=== PATIENT | male | born 1965 | race Caucasian/White ===

== ENCOUNTER 2017-11-26 12:26 | Inpatient (IN) ==
--- NOTE | 2017-11-25 22:37 | Discharge Summary ---
<Leah Guzman - Last Filed: 11/25/17 22:34> Date of Encounter: 11/25/17 - Discharge Diagnosis (1) Arthritis of left hip Priority: Primary Status: Acute (2) Status post total hip replacement, left Priority: Primary Status: Acute (3) Congenital dysplasia of hip Priority: Primary Status: Acute (4) Obesity Priority: Secondary Status: Chronic Qualifiers: Obesity type: due to excess calories Obesity classification: unspecified obesity classification Serious obesity comorbidity presence: unspecified whether serious comorbidity present Qualified Code(s): E66.09 - Other obesity due to excess calories - Hospital Course Hospital course: Mr. Nascimento is a 52 year old male - Time Spent with Patient Total time spent providing and/or coordinating discharge services: - Discharge Medications Home Medications: Aspirin Enteric Coated [Aspirin EC] 325 mg PO BID #20 tablet. 11/25/17 [Rx] OxyCODONE Immed Rel [Roxicodone 5 MG] 5 mg PO Q6HR PRN 7 Days #28 tablet [Rx] Allergies/Adverse Reactions: 3 Allergy/AdvReac Type Severity Reaction Status Date / Time No Known Allergies Allergy Verified 11/26/17 12:58 Primary care physician: PCP NONE - Patient Status Disposition: Transfer Inpatient Rehab Fac Condition: Good - Discharge Instructions Follow Up With: NONE,PCP [Non-Partnered Physician] - <Adbeayo Friedman - Last Filed: 11/29/17 07:53> Orders not resulted at time of discharge: Pending orders 11/26/17 00:01 XR hip complete LT [XR] Routine H/H [Hemoglobin and Hematocrit] [HEME] Routine Date of Encounter: 11/29/17 Time of Encounter: 07:53 - Discharge Diagnosis (1) Obesity (BMI 35.0-39.9 without comorbidity) Priority: Secondary Status: Chronic (2) Arthritis of left hip Priority: Primary Status: Chronic (3) Status post total hip replacement, left Priority: Primary Status: Acute (4) Congenital dysplasia of hip Priority: Secondary Status: Chronic - Hospital Course Hospital course: Mr. Nascimento is a 52 year old male Status post left total hip replacement The patient had an uneventful postoperative course. They received antibiotics and physical therapy and were discharged in stable condition. There will follow -up in the office in 2 weeks. - Time Spent with Patient Total time spent providing and/or coordinating discharge services: Primary care physician: PCP NONE - Patient Status Functional capacity at discharge: uses cane/walker Overall status at discharge: patient is progressing back to baseline
[2017-11-26] MEDS ORDERED: CeFAZolin Syr 2,000MG/20 ML 2,000 MG/20 ML SYRINGE IVPB ONE (12:51)
--- NOTE | 2017-11-26 12:56 | History & Physical Report ---
Date of Encounter: 11/26/17 Time of Encounter: 12:56 24 Hour HP Update - Instructions Instructions: If the History and Physical is less than 30 days old and was completed prior to A.M. admission and or procedure and has NOT been updated on calendar day of procedure please complete this update prior to performing procedure. - Update Patient reports changes in Medical Condition: No Changes in examination, assessment, or condition: No Changes in Medication: No Preop tests/diagnostics Reviewed: Yes Surgery Remains Indicated: Yes Consent for Planned Operative Procedure(s) Verified: Yes - Pre-Operative Checklist Preoperative Checklist Indicated: No Prophylactic Antibiotic Ordered: Yes Is VTE Prophylaxis Indicated?: Yes
[2017-11-26] MEDS ORDERED: Ringers Solution, Lactated 1,000 ML IVC SCH (13:00)
[2017-11-26] MEDS ORDERED: Lidocaine -MPF 2% 2 ML VIAL ONE (13:19)
[2017-11-26] MEDS ORDERED: *HR* FentaNYL (PF) 100 MCG/2 ML VIAL ONE (13:24)
[2017-11-26] MEDS ORDERED: *HR* Midazolam HCl 2 MG/2 ML VIAL ONE ×2 (13:24→14:13)
[2017-11-26] MEDS ORDERED: Ondansetron 4 MG/2 ML VIAL ONE (13:24)
[2017-11-26] MEDS ORDERED: Famotidine 20 MG/2 ML VIAL IVP ONE (13:57)
--- NOTE | 2017-11-26 14:01 | Anesthesia Evaluation PreOp ---
Date of Encounter: 11/26/17 Time of Encounter: 14:00 - Past History Planned Operation: Left THR Cardiac History: Denies any Significant Hx Pulmonary History: Denies Any Significant HX OVENS SUPERVISOR History: Denies Any Significant HX Other Medical History: Other (OA) Anesthesia History: No Prior Anesthetic Complications Alcohol Use: occasionally Drug use: none Medications and Allergies Aspirin Enteric Coated [Aspirin EC] 325 mg PO BID #20 tablet. 11/25/17 [Rx] OxyCODONE Immed Rel [Roxicodone 5 MG] 5 mg PO Q6HR PRN 7 Days #28 tablet [Rx] 3 Allergy/AdvReac Type Severity Reaction Status Date / Time No Known Allergies Allergy Verified 11/26/17 12:58 - Meds/Allergy Pre-op Review Medications Reviewed: Yes Allergies Reviewed: Yes Beta Blockers on Current Med List: No Anesthesia Results - Labs HGB 16.3 HCT 47.1 PLT 148 Anesthesia Exam O2 Sat Height 1.7 m Height 1.7 m Height 1.7 m Weight 104.326 kg Weight 104.326 kg Weight 104.326 kg O2 Sat by Pulse Oximetry 96 Vital Signs Temp Pulse Resp BP Pulse Ox 97.6 F 81 18 163/93 96 11/26/17 13:02 11/26/17 13:02 11/26/17 13:02 11/26/17 13:02 11/26/17 13:02 Height: 5'7 Weight: 230 lbs NPO (# of Hours): MN Pain Scale: 0 - HEENT Pupil (Motor): Pupils equal, EOMI Mallampati: II Teeth: Normal Oral Opening: Greater than 3 - OVENS SUPERVISOR LOC: Oriented OVENS SUPERVISOR Motor: Normal RUE, Normal LUE, Normal RLE, Normal LLE, Normal Face OVENS SUPERVISOR Sensory: Normal: RUE, LUE, RLE, LLE, Face - Cardiac Rhythm: Regular Murmur: None JVD: No Carotid Bruit: No - Pulmonary Breath Sounds: bilateral Clear Respiratory Effort: Symmetrical Anesthesia Assess/Plan ASA Score: 2 Modified Jhon Scale for Level of Consciousness: Cooperative, oriented, and tranquil Anesthetic Plan: Regional, MAC Monitoring Plan: Standard Monitors Recovery Plan: PACU (Discussed SAB with Fascia Iliaca, possible GA, agrees to proceed)
[2017-11-26] MEDS ORDERED: Ethanol\\Acetic Acid\\Na Ace\\Ben 1,000 ML IRRIG.SOLN IR ONE (14:11)
[2017-11-26] MEDS ORDERED: ROPIVACAINE HCL/PF 0.5% 30 ML VIAL ONE (14:13)
--- NOTE | 2017-11-26 14:31 | Physician Discharge Referral ---
<Leah Guzman - Last Filed: 11/26/17 14:30> Home Health/Hosp Referral Info Transfer to: Home Health Attending Provider: Provider in Charge Post Discharge: PCP - Diagnosis (1) Arthritis of left hip Priority: Primary Status: Chronic (2) Status post total hip replacement, left Priority: Primary Status: Acute (3) Congenital dysplasia of hip Priority: Primary Status: Chronic (4) Obesity Status: Chronic - Respiratory Orders None Smoking Cessation: Smoking cessation has been advised. For more information, call the [employer] Line at 9-379-DENR-NOW. - Diet/Nutrition Diet/Nutrition Orders: Regular - Activity Activity Orders: Up ad amina, Ambulate, Walker - Services Needed Following services are medically necessary services: Nursing, Home Health Aide, Physical Therapy, Occupational Therapy - Transfer Medications Home Medications: Aspirin Enteric Coated [Aspirin EC] 325 mg PO BID #20 tablet. 11/25/17 [Rx] OxyCODONE Immed Rel [Roxicodone 5 MG] 5 mg PO Q6HR PRN 7 Days #28 tablet [Rx] Allergies/Adverse Reactions: 3 Allergy/AdvReac Type Severity Reaction Status Date / Time No Known Allergies Allergy Verified 11/26/17 12:58 Certification: Further, I certify that my clinical findings support that this patient is homebound (i.e. absences from home require considerable and taxing effort and are for medical reasons or church services or infrequently or short duration when for other reasons) because: Homebound Reason: Post-surgery restriction and or conditions limit ability to leave home Attestation: My signature below is to certify that this patient is under my care and that I, or nurse practitioner, or a physician's phys assistant working with me, has a face-to -face encounter with this patient. <Adebayo Friedman - Last Filed: 11/26/17 18:45> - Diagnosis (1) Obesity (BMI 35.0-39.9 without comorbidity) Status: Chronic (2) Arthritis of left hip Status: Chronic (3) Status post total hip replacement, left Status: Acute (4) Congenital dysplasia of hip Status: Chronic - Respiratory Orders Smoking Cessation: Smoking cessation has been advised. For more information, call the [employer] Quit Line at 2-004-SGCY-UZZ. Certification: Further, I certify that my clinical findings support that this patient is homebound (i.e. absences from home require considerable and taxing effort and are for medical reasons or church services or infrequently or short duration when for other reasons) because: Attestation: My signature below is to certify that this patient is under my care and that I, or nurse practitioner, or a physician's phys assistant working with me, has a face-to -face encounter with this patient.
--- NOTE | 2017-11-26 14:47 | Anesthesia Procedures ---
Date of Encounter: 11/26/17 Time of Encounter: 14:44 Procedures: Anesthesia - Epidural/Spinal Patient ID/Chart reviewed: Yes Patient examined: No Supplemental Oxygen Rate (L/min): 2 Sedation: Versed (mg): 4 Sedation: Fentanyl (mcg): 100 Site Prep: Aseptic Technique, 0.5% Chlorhexidine/Alcohol Patient position: upright Local Anesthetic: Lidocaine 1% Amount of Local Anesthetic used: 3 Interspace Used: L3-L4 Spinal Needle Gauge: 25 Procedure: sab left lateral position x 1 attempt. clear csf thru 25g pencan. no parasthesias, no heme. 2cc 0.5% sensorcaine and 0.2 mg duramorph injected after postive swirl
--- NOTE | 2017-11-26 14:49 | Anesthesia Procedures ---
Date of Encounter: 11/26/17 Time of Encounter: 14:47 Procedures: Anesthesia - Nerve Block Procedure Date: 11/26/17 Time: 14:47 Allergies/Adv Reactions: No Known Allergies Allergy (Verified 11/26/17 12:58) Surgical Procedure: left hip arthroplasty Checklist: Correct Patient Identifier, Correct procedure, History checked Correct side: Left Blood Thinner: No Monitor Applied: EKG, BP, Pulse Oximetry Supplemental Oxygen via Nasal Cannula (L/min): 2 Indication: Post Op Analgesia Pre-op Neuro Deficits: No Block Type: Other (fascia iliaca) Sterile Technique: Yes Ultrasound used: Yes Anatomy identified: Yes Visual spread of Local: Yes Neuro Stimulation: No Blood on Needle Aspiration: No Smooth Injection of Local: Yes Prep: Chlorhexadine Needle: 22 x 50 mm Stimuplex Local: Ropivacaine (0.5%) Volume (cc): 30 Number of Attempts: 1 Complications: None/effective block
[2017-11-26] MEDS ORDERED: Dexamethasone 4 MG/ML VIAL ONE (15:11)
--- NOTE | 2017-11-26 16:09 | Orthopedic Operative Note ---
Date of procedure: 11/26/17 Pre-op diagnosis: Left hip arthritis Post-op diagnosis: same (Bilateral developmental dysplasia hips) Procedure: Procedure: Left Total Hip Replacment robotic-assisted Estimated blood loss: 300 cc Hardware: Metal and polyethylene replacement. Wayne DM Cup: 62 cup 2, 6.5 cancellus screws Femoral size10 stem Head:-4 head with Sabine Procedural Notes: Grade 4 arthritic changes femoral head acetabular socket, procedure performed with robotic assistance. Left hip protrusio, 4 mm short compared to contralateral side both hips with disease as measured by CT scan Operative procedure: The patient was brought to the operating room and placed on the operating room table. After general anesthesia was administered the patient was placed in the lateral decubitus position with the operative leg up. All pressure points were padded appropriately and the head was stabilized in the neutral position. The operative extremity was prepped and draped in the sterile surgical fashion patient received IV antibiotic prior to skin incision. 3 Steinmann pins were placed in the iliac crest 3 cm proximal to the anterior superior iliac spine this was for the robotic-assisted sensor. This was done through a small 2 cm incision. A standard posterior approach is made to the operative hip, the incision was made through the skin and subcutaneous tissue hemostasis was obtained with Bovie cautery. Using careful sharp dissection the fascia was identified and incised exposing the external rotators. The femoral checkpoint was placed leg length was measured at this time utilizing robotic assistance. The external rotators were released off the greater trochanter and tagged with # 2 FiberWire suture. The capsule was T'd open and the hip was brought into internal rotation. After the dislocation was performed this was challenging because of the protrusion of the femoral head within the acetabular socket. Patient noted to have grade 4 arthritic changes femoral head. The femoral neck cut was made at the appropriate level roughly 15mm proximal to the lesser trochanter aced on preoperative templating. An anterior capsulotomy was performed for the anterior retractor. Soft tissues removed from the acetabulum. Patient noted to have grade 4 arthritic changes acetabulum. The acetabulum checkpoint was placed confirmed. The acetabulum was then mapped with robotic assistance. Based on the preoperative plan the acetabulum was reamed in one step with a 61 reamer. The 62acetabulum was impacted with robotic assistance and 39 degrees of abduction and 18 degrees of anteversion. Fixation was augmented with 2, 6.5 cancellous screws in the posterior superior quadrant. The hip was brought back in to internal rotation and prepared with the boxing instructor followed by the canal finder followed by the reaming process to a size 9/ 10 broaching process in 20 degrees anteversion. It was broached up to the appropriate size 10. Trial reduction revealed leg lengths close to normal. The femoral implant was impacted in place in 20 degrees of anteversion. Trial reduction found the hip to be stable with -4 head and Sabine. The trials were removed and the real implants were impacted in place. The hip was reduced, patient had robotic confirmed leg length of 4 mm longer than the contralateral side. The hip had excellent stability with forward flexion to 90 degrees adduction of 30 degrees and internal rotation of 60 degrees. The hip had no shuck. The hips after 2 minutes with a antibacterial solution. It was irrigated out with 2 L of pulse irrigation. The checkpoints were removed, Steinmann pins were removed. The hip was closed by the PA. The deep tissue was irrigated and closed deep with #1 PDS suture superficially with 0 PDS suture and skin was closed with Dermabond and zip tie. The patient was placed in a sterile dressing and abduction pillow. The patient was extubated and transferred to the recovery room in stable condition. Anesthesia: GETA Surgeon: Adebayo Friedman Was there an funeral assistant present: Yes Metal Fab[employer] Supervisor: Leah Guzman Estimated blood loss (cc): 300 Condition: stable Disposition: PACU
[2017-11-26 17:03] LABS: Hematocrit 42.7 % (37.5-50.1); Hemoglobin 14.6 g/dL (12.9-16.9)
--- NOTE | 2017-11-26 17:10 | Anesthesia Evaluation Post Op ---
Date of Encounter: 11/26/17 Time of Encounter: 17:10 - Vital Signs Vital Signs: Vital Signs/O2 Sat, Most Current Temp Pulse Resp BP Pulse Ox 98.1 F 73 16 123/76 94 11/26/17 17:00 11/26/17 17:00 11/26/17 17:00 11/26/17 17:00 11/26/17 17:00 - Lungs Lungs: Clear Ascult./Percussion - Airway Airway: Non-obstructed - Cardiovascular Regular Rate - Mental Status Mental Status: Alert & Oriented, Answers Appropriately - Pain Pain Scale: 0 - Nausea Vomiting Nausea Vomiting: Not Present - Hydration Hydration: Ice chips, Has not voided - Discharge PostOp Status: Transfer Patient to floor
[2017-11-26] MEDS ORDERED: traMADol 50 MG TABLET PO PRN (17:17)
[2017-11-26] MEDS ORDERED: Temazepam 15 MG CAPSULE PO PRN (17:17)
[2017-11-26] MEDS ORDERED: MOM Conc 10 ML UD.LIQ PO PRN (17:17)
[2017-11-26] MEDS ORDERED: Sennosides 8.6 MG TABLET PO PRN (17:17)
[2017-11-26] MEDS ORDERED: Ondansetron 4 MG/2 ML VIAL IVP PRN (17:17)
[2017-11-26] MEDS ORDERED: Naloxone 0.4 MG/ML INJ IVP PRN (17:17)
[2017-11-26] MEDS: Ascorbic Acid 500 MG TABLET PO SCH (17:58)
[2017-11-26] MEDS: *HR* Enoxaparin 30 MG/0.3 ML SYRINGE SQ SCH (17:58)
[2017-11-26] MEDS ORDERED: *HR* Enoxaparin 30 MG/0.3 ML SYRINGE SQ SCH (18:00)
[2017-11-26] MEDS: Ringers Solution, Lactated 1,000 ML IVC SCH (21:54)
[2017-11-26] MEDS ORDERED: CeFAZolin Pre 2,000 MG/100 ML 2,000 MG/100 ML BAG IVPB SCH (23:00)
[2017-11-27] MEDS: CeFAZolin Pre 2,000 MG/100 ML 2,000 MG/100 ML BAG IVPB SCH ×2 (00:13→09:02)
[2017-11-27 02:24] LABS: Hematocrit 39.9 % (37.5-50.1); Hemoglobin 13.6 g/dL (12.9-16.9)
[2017-11-27 02:45] LABS: BUN/Creatinine Ratio 19 (6-26); Blood Urea Nitrogen 16 mg/dL (6-20); Calcium 8.7 mg/dL (8.6-10.3); Carbon Dioxide 23 mEq/L (23-29); Chloride 105 mEq/L (98-107); Glucose 161 mg/dL (70-105); Osmolality,Calculated 289 (280-300); Potassium 4.4 mEq/L (3.5-5.1); Sodium 137 mEq/L (136-145); eGFR For African Americans > 60 (> 60); eGFR For Non-African Americans > 60 (> 60)
[2017-11-27] MEDS: *HR* Enoxaparin 30 MG/0.3 ML SYRINGE SQ SCH ×2 (05:36→17:25)
--- NOTE | 2017-11-27 06:16 | Orthopedics Progress Note ---
Date of Encounter: 11/27/17 Time of Encounter: 06:16 - Assessment and Plan (1) Obesity (BMI 35.0-39.9 without comorbidity) Current Visit: Yes Status: Chronic (2) Arthritis of left hip Current Visit: No Status: Chronic (3) Status post total hip replacement, left Current Visit: No Status: Acute (4) Congenital dysplasia of hip Current Visit: No Status: Chronic Subjective Interval history: Patient was seen this morning doing well without complaints. Afebrile vital signs stable. Operative extremity: Neurovascularly intact Dressing clean dry and intact Calves nontender Assessment and plan: Continue with postoperative care Hematocrit 39 Objective Vital signs: Vital Signs Temp Pulse Resp BP Pulse Ox 11/27/17 03:51 97.5 F L 78 16 147/97 95 11/26/17 23:38 98.0 F 96 18 128/80 94 11/26/17 19:30 98.1 F 86 18 157/86 95 11/26/17 18:09 97.4 F L 80 16 128/78 96 11/26/17 17:40 97.9 F 71 14 135/87 96 11/26/17 17:31 96 11/26/17 17:18 98.8 F 73 14 129/85 94 11/26/17 17:10 98.1 F 71 16 137/83 94 11/26/17 17:00 98.1 F 73 16 123/76 94 11/26/17 16:50 74 15 121/77 94 11/26/17 16:40 78 16 99/63 94 11/26/17 16:30 97.6 F 91 12 105/72 92 11/26/17 14:43 84 142/85 96 11/26/17 14:16 80 152/104 95 11/26/17 13:02 97.6 F 81 18 163/93 96 Intake and Output 11/26/17 11/26/17 11/27/17 15:59 23:59 07:59 Intake Total 500 / 500 Output Total 300 / 300 700 / 700 Balance -300 / -300 -200 / -200 Intake: Oral 500 / 500 Output: Urine 100 / 100 Estimated Blood Loss 300 / 300 Straight Cath 600 / 600 Other: Weight 104.326 kg - Labs CBC & BMP: 11/27/17 01:45 11/27/17 01:45 Labs: Abnormal lab results Glucose 161 mg/dL (70-105) H 11/27/17 01:45 - VTE Documentation of Mechanical Device: Venous foot pump, device Consult Discharge Plan - Plan Referrals: NONE,PCP [Primary Care Provider] -
[2017-11-27] MEDS ORDERED: 0.9 % Sodium Chloride 1,000 ML ONE (08:24)
[2017-11-27] MEDS: Ascorbic Acid 500 MG TABLET PO SCH ×2 (08:37→17:25)
[2017-11-27] MEDS: Multivit/Ca/Min/Fe/FA 1 TAB TABLET PO SCH (08:37)
--- NOTE | 2017-11-27 12:09 | Event Note ---
Date of Encounter: 11/27/17 Time of Encounter: 12:08 PCR - POD#1 - LEFT THR Patient seen at bedside. Early AM hypotension - improved with IVF Labs reviewed. Pain control: yes Participating in PT. All questions and concerns addressed. Educated on use of incentive spirometer. Encouraged ambulation and proper hydration. Patient educated on post-operative restrictions and post-operative care. Addressed: home with - continuity placed Discharge plan: Home 11/28 if Hypotension improved, starting orthostatics
[2017-11-27] MEDS: *HR* OxyCODONE/APAP 5/325 TABLET PO PRN ×3 (13:34→21:39)
[2017-11-27] MEDS: Ringers Solution, Lactated 1,000 ML IVC SCH (17:27)
[2017-11-28 01:52] LABS: Hematocrit 34.9 % (37.5-50.1)
[2017-11-28 01:53] LABS: Hemoglobin 11.9 g/dL (12.9-16.9)
[2017-11-28 02:10] LABS: BUN/Creatinine Ratio 22 (6-26); Blood Urea Nitrogen 16 mg/dL (6-20); Calcium 8.5 mg/dL (8.6-10.3); Carbon Dioxide 23 mEq/L (23-29); Chloride 106 mEq/L (98-107); Glucose 126 mg/dL (70-105); Osmolality,Calculated 289 (280-300); Potassium 3.7 mEq/L (3.5-5.1); Sodium 138 mEq/L (136-145); eGFR For African Americans > 60 (> 60); eGFR For Non-African Americans > 60 (> 60)
[2017-11-28] MEDS: *HR* OxyCODONE/APAP 5/325 TABLET PO PRN (02:18)
[2017-11-28] MEDS: *HR* Enoxaparin 30 MG/0.3 ML SYRINGE SQ SCH ×2 (05:04→17:05)
[2017-11-28] MEDS: *HR* OxyCODONE Immed Rel 5 MG TABLET PO PRN ×5 (06:17→22:46)
--- NOTE | 2017-11-28 06:41 | Orthopedics Progress Note ---
Date of Encounter: 11/28/17 Time of Encounter: 06:41 - Assessment and Plan (1) Obesity (BMI 35.0-39.9 without comorbidity) Current Visit: Yes Status: Chronic (2) Arthritis of left hip Current Visit: No Status: Chronic (3) Status post total hip replacement, left Current Visit: No Status: Acute (4) Congenital dysplasia of hip Current Visit: No Status: Chronic Subjective Interval history: Patient was seen this morning doing well without complaints. Afebrile vital signs stable. Operative extremity: Neurovascularly intact Dressing clean dry and intact Calves nontender Assessment and plan: Continue with postoperative care Hematocrit 34 Objective Vital signs: Vital Signs Temp Pulse Resp BP Pulse Ox 11/28/17 04:22 98.4 F 99 18 155/88 94 11/27/17 23:43 99.5 F 104 16 154/74 93 11/27/17 19:10 98.4 F 99 18 132/85 96 11/27/17 15:21 98.7 F 88 16 113/72 94 11/27/17 11:41 98.3 F 79 16 141/80 98 11/27/17 09:02 112/77 11/27/17 08:02 98.7 F 77 16 114/77 93 Intake and Output 11/27/17 11/27/17 11/28/17 15:59 23:59 07:59 Intake Total 1220 / 1220 200 / 200 250 / 250 Output Total 600 / 600 775 / 775 Balance 620 / 620 200 / 200 -525 / -525 Intake: IV Fluids 1100 / 1100 Lactated Ringers 1,000 ML @ 75 1000 / 1000 mls/hr IVC .[id number] [facility] Rx#: [id number] Ancef Premix 2,000 MG/100 ML 2, 100 / 100 000 mg In 100 ml @ 200 mls/hr IVPB Q8H [facility]LEY Rx#:[id number] Oral 120 / 120 200 / 200 250 / 250 Output: Urine 775 / 775 Straight Cath 600 / 600 Other: Meal Breakfast Dinner Percent of Meal Consumed 0% 100% - Labs CBC & BMP: 11/28/17 01:13 11/28/17 01:13 Labs: Abnormal lab results Hgb 11.9 g/dL (12.9-16.9) L D 11/28/17 01:13 Hct 34.9 % (37.5-50.1) L 11/28/17 01:13 Glucose 126 mg/dL (70-105) H 11/28/17 01:13 Calcium 8.5 mg/dL (8.6-10.3) L 11/28/17 01:13 - VTE Documentation of Mechanical Device: Venous foot pump, device Consult Discharge Plan - Plan Referrals: NONE,PCP [Non-Partnered Physician] -
[2017-11-28] MEDS: Multivit/Ca/Min/Fe/FA 1 TAB TABLET PO SCH (07:38)
[2017-11-28] MEDS: Ascorbic Acid 500 MG TABLET PO SCH ×2 (07:38→16:27)
[2017-11-28] MEDS: Ringers Solution, Lactated 1,000 ML IVC SCH ×2 (07:44→07:46)
--- NOTE | 2017-11-28 10:06 | Physician Discharge Referral ---
ExtendedCare Referral Info Transfer To: [facility] Provider in Charge: Provider in Charge after Transfer: PCP Institutional Level of Care: Skilled - Diagnosis (1) Arthritis of left hip Priority: Primary Status: Chronic (2) Status post total hip replacement, left Priority: Primary Status: Acute (3) Congenital dysplasia of hip Priority: Primary Status: Chronic (4) Obesity Priority: Secondary Status: Chronic Expected Duration of Placement: < 30 days Prognosis: Good Aware of Diagnosis: Patient Aware of Prognosis: Patient - Transfer Medications Home Medications: Aspirin Enteric Coated [Aspirin EC] 325 mg PO BID #20 tablet. 11/25/17 [Rx] OxyCODONE Immed Rel [Roxicodone 5 MG] 5 mg PO Q6HR PRN 7 Days #28 tablet [Rx] Allergies/Adverse Reactions: 3 Allergy/AdvReac Type Severity Reaction Status Date / Time No Known Allergies Allergy Verified 11/26/17 12:58 - Respiratory Orders None Smoking Cessation: Smoking cessation has been advised. For more information, call the [employer] Quit Line at 3-088-SDEO-NOW. - Ancillary Orders May use pressure relief devices daily prn, May go on JOVANI w/family/respon libertarian w /meds at nurse discretion PRN - Mobility Orders Chair, Ambulate - Rehabiliation Orders Rehab Potential: Good Rehab Orders: ROM Exercises, Evaluation for Physical Therapy, Evaluation for Occupational Therapy - Treatments List/Other: Rehab orders for total hip: Total Hip replacement Precautions Apply cold therapy 3-6x/day for 20 minutes at a time. Encourage ambulation throughout the day and incentive spirometer 10x/hour. Elevate affected extremity as tolerated. Brace: Wear hip abduction pillow when laying/sleeping Treatments: Opsite placed. Keep dressing intact until first follow up appointment. If > 50% saturated, notify office, remove dressing and place appropriate dressing back in place. Leave Zipline intact. Opsite dressing is water resistant, not water- proof. OK to shower, but do not get dressing wet. - Diet Orders Regular CERTIFICATION: I certify that the transfer of the above named patient to an Extended Care Facility is necessary for the continuing treatment of the diagnosis listed. The above information is true and accurate reflection of patient's current condition. Confidential - Redisclosure prohibited without a patient's written consent.
[2017-11-29] MEDS: *HR* OxyCODONE Immed Rel 5 MG TABLET PO PRN ×2 (03:00→15:28)
[2017-11-29] MEDS: *HR* Enoxaparin 30 MG/0.3 ML SYRINGE SQ SCH (06:02)
[2017-11-29] MEDS: *HR* OxyCODONE/APAP 5/325 TABLET PO PRN (06:58)
[2017-11-29] MEDS: Multivit/Ca/Min/Fe/FA 1 TAB TABLET PO SCH (07:44)
[2017-11-29] MEDS: Ascorbic Acid 500 MG TABLET PO SCH (07:44)
--- NOTE | 2017-11-29 07:54 | Orthopedics Progress Note ---
Date of Encounter: 11/29/17 Time of Encounter: 07:54 - Assessment and Plan (1) Obesity (BMI 35.0-39.9 without comorbidity) Current Visit: Yes Status: Chronic (2) Arthritis of left hip Current Visit: No Status: Chronic (3) Status post total hip replacement, left Current Visit: No Status: Acute (4) Congenital dysplasia of hip Current Visit: No Status: Chronic Subjective Interval history: Patient was seen this morning doing well without complaints. Afebrile vital signs stable. Operative extremity: Neurovascularly intact Dressing clean dry and intact Calves nontender Assessment and plan: Continue with postoperative care Discharged today Objective Vital signs: Vital Signs Temp Pulse Resp BP Pulse Ox 11/29/17 06:51 98.4 F 93 16 147/83 95 11/29/17 03:50 98.6 F 90 16 144/85 93 11/28/17 23:42 98.8 F 90 18 144/83 93 11/28/17 19:16 99.0 F 100 16 162/92 93 11/28/17 16:50 98.5 F 84 16 154/86 98 11/28/17 10:29 98.4 F 11/28/17 10:00 87 16 127/76 96 Intake and Output 11/28/17 11/28/17 11/29/17 15:59 23:59 07:59 Intake Total 450 / 450 400 / 400 Output Total 800 / 800 950 / 950 400 / 400 Balance -350 / -350 -550 / -550 -400 / -400 Intake: Oral 450 / 450 400 / 400 Output: Urine 800 / 800 950 / 950 400 / 400 Other: Meal Lunch Percent of Meal Consumed 90% - Labs CBC & BMP: 11/28/17 01:13 11/28/17 01:13 Labs: Abnormal lab results Hgb 11.9 g/dL (12.9-16.9) L D 11/28/17 01:13 Hct 34.9 % (37.5-50.1) L 11/28/17 01:13 Glucose 126 mg/dL (70-105) H 11/28/17 01:13 Calcium 8.5 mg/dL (8.6-10.3) L 11/28/17 01:13 - VTE Documentation of Mechanical Device: Venous foot pump, device Consult Discharge Plan - Plan Referrals: NONE,PCP [Non-Partnered Physician] -
[2017-11-29 11:18] VITALS: BP 148/87
--- NOTE | 2017-11-29 16:49 | Event Note ---
Date of Encounter: 11/29/17 Time of Encounter: 16:48 Patient doing well. Discharge to ECF today.
== END 2017-11-29 17:25 | DRG 470 ==
LOC: SAMDAY 12:26 → 3NENU 17:12
PROVIDERS: ADMIT Orthopaedic Surgery; ATTEND Orthopaedic Surgery

== ENCOUNTER 2018-01-14 10:05 | Inpatient (IN) ==
--- NOTE | 2018-01-13 23:07 | Discharge Summary ---
<FabiolasharananaLeah L - Last Filed: 01/13/18 23:04> Date of Encounter: 01/13/18 - Discharge Diagnosis (1) Arthritis of right hip Priority: Primary Status: Acute (2) Status post total hip replacement, right Priority: Primary Status: Acute (3) Congenital dysplasia of hip Status: Chronic (4) Obesity (BMI 35.0-39.9 without comorbidity) Priority: Secondary Status: Chronic - Hospital Course Hospital course: Mr. Nascimento is a 52 year old male - Time Spent with Patient Total time spent providing and/or coordinating discharge services: - Discharge Medications Prescriptions: Aspirin Enteric Coated [Aspirin EC] 325 mg PO BID #20 tablet. OxyCODONE Immed Rel [Roxicodone 5 MG] 5 mg PO Q6HR PRN 7 Days #28 tablet PRN Reason: Severe Pain Home Medications: Aspirin Enteric Coated [Aspirin EC] 325 mg PO BID #20 tablet. 01/13/18 [Rx] OxyCODONE Immed Rel [Roxicodone 5 MG] 5 mg PO Q6HR PRN 7 Days #28 tablet [Rx] Meloxicam 15 mg PO DAILY 01/14/18 [History] Allergies/Adverse Reactions: 3 Allergy/AdvReac Type Severity Reaction Status Date / Time No Known Allergies Allergy Verified 01/14/18 10:25 Primary care physician: Corina Posada CNP - Discharge Instructions Follow Up With: Corina Posada CNP [Primary Care Provider] - <Adebayo Friedman - Last Filed: 01/14/18 11:22> Orders not resulted at time of discharge: Pending orders 01/14/18 00:01 XR hip complete RT [XR] Routine H/H [Hemoglobin and Hematocrit] [HEME] Routine Date of Encounter: 01/14/18 - Discharge Diagnosis (1) Status post total hip replacement, left Priority: Secondary Status: Chronic (2) Congenital dysplasia of hip Priority: Primary Status: Chronic (3) Obesity (BMI 35.0-39.9 without comorbidity) Priority: Secondary Status: Chronic (4) Arthritis of right hip Priority: Primary Status: Chronic (5) Status post total hip replacement, right Priority: Primary Status: Acute - Hospital Course Hospital course: Mr. Nascimento is a 52 year old male - Time Spent with Patient Total time spent providing and/or coordinating discharge services: Primary care physician: Corina Posada, DUPLICATOR PUNCH SET UP OPERATOR
--- NOTE | 2018-01-14 10:08 | Anesthesia Evaluation PreOp ---
Date of Encounter: 01/14/18 Time of Encounter: 10:29 - Past History Planned Operation: Right Total Hip Arthroplasty Cardiac History: Denies any Significant Hx Pulmonary History: Denies Any Significant HX BINDER CUTTER HAND History: Denies Any Significant HX Other Medical History: Denies Any Significant HX Anesthesia History: Past Anesthesia, Problems (delayed voiding {3 days} after SAB for left THR) Alcohol Use: occasionally Drug use: none, unknown Medications and Allergies Aspirin Enteric Coated [Aspirin EC] 325 mg PO BID #20 tablet. 01/13/18 [Rx] OxyCODONE Immed Rel [Roxicodone 5 MG] 5 mg PO Q6HR PRN 7 Days #28 tablet [Rx] Meloxicam [Meloxicam] 15 mg PO DAILY 01/14/18 [History] 3 Allergy/AdvReac Type Severity Reaction Status Date / Time No Known Allergies Allergy Verified 01/14/18 10:25 - Meds/Allergy Pre-op Review Medications Reviewed: Yes Allergies Reviewed: Yes Beta Blockers on Current Med List: No Anesthesia Results - Labs Laboratory Tests 11/28/17 11/28/17 01:13 01:13 Hgb 11.9 L D Hct 34.9 L Sodium 138 Potassium 3.7 BUN 16 Creatinine 0.74 - Imaging EKG: report reviewed (01/14/2018 SR) Anesthesia Exam O2 Sat Height 1.7 m Height 1.7 m Height 1.7 m Weight 104.326 kg Weight 104.326 kg Weight 104.326 kg O2 Sat by Pulse Oximetry 98 O2 Sat by Pulse Oximetry 98 Vital Signs Temp Pulse Resp BP Pulse Ox 98.2 F 18 18 155/99 98 01/14/18 10:33 01/14/18 10:33 01/14/18 10:33 01/14/18 10:33 01/14/18 10:33 Height: 5'7'' Weight: 230 lbs NPO (# of Hours): 8 Pain Scale: 0 Pain Scale Used: Numeric (1 - 10) - HEENT Pupil (Motor): EOMI Mallampati: II Teeth: Normal Oral Opening: Greater than 3 - BINDER CUTTER HAND LOC: Oriented BINDER CUTTER HAND Motor: Normal RUE, Normal LUE, Normal RLE, Normal Face, Deficit LLE (weaker post-op from left THR 11/26/2017) BINDER CUTTER HAND Sensory: Normal: RUE, LUE, RLE, LLE, Face - Cardiac Rhythm: Regular Murmur: None - Pulmonary Breath Sounds: bilateral Clear Respiratory Effort: Symmetrical Anesthesia Assess/Plan ASA Score: 2 Modified [place] Scale for Level of Consciousness: Cooperative, oriented, and tranquil Anesthetic Plan: General Monitoring Plan: Standard Monitors Recovery Plan: PACU
[2018-01-14] MEDS ORDERED: Ondansetron 4 MG/2 ML VIAL ONE (10:22)
[2018-01-14] MEDS ORDERED: Dexamethasone 4 MG/ML VIAL ONE (10:22)
[2018-01-14] MEDS ORDERED: *HR* Midazolam HCl 2 MG/2 ML VIAL ONE (10:22)
[2018-01-14] MEDS ORDERED: Lidocaine -MPF 2% 2 ML VIAL ONE (10:22)
[2018-01-14] MEDS ORDERED: *HR* FentaNYL (PF) 100 MCG/2 ML VIAL ONE ×2 (10:22→11:41)
[2018-01-14] MEDS ORDERED: *HR* Propofol 200 MG/20 ML VIAL IVP ONE (10:22)
[2018-01-14] MEDS ORDERED: CeFAZolin Syr 2,000MG/20 ML 2,000 MG/20 ML SYRINGE IVPB ONE (10:26)
[2018-01-14] MEDS ORDERED: Ethanol\\Acetic Acid\\Na Ace\\Ben 1,000 ML IRRIG.SOLN IR ONE (10:29)
[2018-01-14] MEDS ORDERED: Ringers Solution, Lactated 1,000 ML IVC SCH ×3 (10:30→14:22)
[2018-01-14] MEDS ORDERED: Morphine Sulfate/PF 5mg/10mL Vial ONE (10:32)
[2018-01-14] MEDS ORDERED: Propofol 500 MG/50 ML INFUS..BTL ONE (10:32)
--- NOTE | 2018-01-14 11:16 | History & Physical Report ---
Date of Encounter: 01/14/18 Time of Encounter: 11:15 24 Hour HP Update - Instructions Instructions: If the History and Physical is less than 30 days old and was completed prior to A.M. admission and or procedure and has NOT been updated on calendar day of procedure please complete this update prior to performing procedure. - Update Patient reports changes in Medical Condition: No Changes in examination, assessment, or condition: No Changes in Medication: No Preop tests/diagnostics Reviewed: Yes Surgery Remains Indicated: Yes Consent for Planned Operative Procedure(s) Verified: Yes - Pre-Operative Checklist Preoperative Checklist Indicated: No Prophylactic Antibiotic Ordered: Yes Is VTE Prophylaxis Indicated?: Yes
[2018-01-14] MEDS ORDERED: Ketorolac 30 MG/ML VIAL ONE (11:34)
[2018-01-14] MEDS ORDERED: Acetaminophen IV 1,000 MG/100 ML INFUS..BTL ONE (11:35)
[2018-01-14] MEDS ORDERED: *HR* OxyCODONE Immed Rel 5 MG TABLET PO PRN (11:41)
[2018-01-14] MEDS ORDERED: Ondansetron 4 MG/2 ML VIAL IVP ONE (11:41)
[2018-01-14] MEDS ORDERED: *HR* Meperidine 25 MG/ML SYRINGE IVP PRN (11:41)
[2018-01-14] MEDS ORDERED: *HR* Promethazine 25 MG/ML VIAL IVP PRN (11:41)
[2018-01-14] MEDS ORDERED: *HR* Labetalol 100 MG/20 ML MDV IVP PRN (11:41)
[2018-01-14] MEDS ORDERED: *HR* HYDROmorphone 2 MG TABLET PO PRN (11:41)
[2018-01-14] MEDS ORDERED: Naloxone 0.4 MG/ML INJ IVP PRN ×2 (11:41→14:22)
[2018-01-14] MEDS ORDERED: *HR* Morphine 2 MG/ML SYRINGE IVP PRN (11:41)
[2018-01-14] MEDS ORDERED: Albuterol 2.5 MG/3 ML NEBULIZER IH ONE (11:41)
[2018-01-14] MEDS ORDERED: *HR* Magnesium Sulfate 1 GM/2 ML VIAL ONE (11:42)
[2018-01-14] MEDS ORDERED: *HR* PHENYLEPHRINE 1,000 MCG/10 ML SYRINGE IVP ONE (11:55)
--- NOTE | 2018-01-14 12:30 | Orthopedic Operative Note ---
Date of procedure: 01/14/18 Pre-op diagnosis: right hip arthritis Post-op diagnosis: same Procedure: Procedure: Right Total Hip Replacment robotic-assisted Estimated blood loss: 200 cc Hardware: Metal and polyethylene replacement. Khalida DM Cup: 60 cup Femoral size 10 stem Head: -4 head with Sabine Procedural Notes: Grade 4 arthritic changes femoral head acetabular socket, procedure performed with robotic assistance. 10 mm shorter operative side as measured by CT scan Operative procedure: The patient was brought to the operating room and placed on the operating room table. After general anesthesia was administered the patient was placed in the lateral decubitus position with the operative leg up. All pressure points were padded appropriately and the head was stabilized in the neutral position. The operative extremity was prepped and draped in the sterile surgical fashion patient received IV antibiotic prior to skin incision. 3 Steinmann pins were placed in the iliac crest 3 cm proximal to the anterior superior iliac spine this was for the robotic-assisted sensor. This was done through a small 2 cm incision. A standard posterior approach is made to the operative hip, the incision was made through the skin and subcutaneous tissue hemostasis was obtained with Bovie cautery. Using careful sharp dissection the fascia was identified and incised exposing the external rotators. The femoral checkpoint was placed leg length was measured at this time utilizing robotic assistance. The external rotators were released off the greater trochanter and tagged with # 2 FiberWire suture. The capsule was T'd open and the hip was brought into internal rotation. Patient noted to have grade 4 arthritic changes femoral head. The femoral neck cut was made at the appropriate level roughly 12 mm proximal to the lesser trochanter aced on preoperative templating. An anterior capsulotomy was performed for the anterior retractor. Soft tissues removed from the acetabulum. Patient noted to have grade 4 arthritic changes acetabulum. The acetabulum checkpoint was placed confirmed. The acetabulum was then mapped with robotic assistance. Based on the preoperative plan the acetabulum was reamed in one step with a 59 reamer. The 60 acetabulum was impacted with robotic assistance and 42 degrees of abduction and 16 degrees of anteversion. The hip was brought back in to internal rotation and prepared with the paper box maker followed by the canal finder followed by the reaming process to a size X broaching process in 20 degrees anteversion. It was broached up to the appropriate size 8. Trial reduction revealed leg lengths close to normal. The femoral implant was impacted in place in 20 degrees of anteversion. Trial reduction found the hip to be stable with 8 head and Sabine. The trials were removed and the real implants were impacted in place. The hip was reduced, patient had robotic confirmed leg length of 5 mm shorter than the contralateral side. The hip had excellent stability with forward flexion to 90 degrees adduction of 30 degrees and internal rotation of 60 degrees. The hip had no shuck. The hips after 2 minutes with a antibacterial solution. It was irrigated out with 2 L of pulse irrigation. The checkpoints were removed, Steinmann pins were removed. The hip was closed by the PA. The deep tissue was irrigated and closed deep with #1 PDS suture superficially with 0 PDS suture and skin was closed with Dermabond and zip tie. The patient was placed in a sterile dressing and abduction pillow. The patient was extubated and transferred to the recovery room in stable condition. Anesthesia: GETBo Surgeon: Adebayo Friedman Was there an assistant plant manager present: Yes Financial Aid Coordinator: Leah Guzman Estimated blood loss (cc): 200 Condition: stable Disposition: PACU
[2018-01-14 13:46] LABS: Hematocrit 41.1 % (37.5-50.1); Hemoglobin 13.9 g/dL (12.9-16.9)
--- NOTE | 2018-01-14 13:52 | Anesthesia Evaluation Post Op ---
Date of Encounter: 01/14/18 Time of Encounter: 13:50 - Vital Signs Vital Signs: Vital Signs/O2 Sat/Glucose, Most Recent Temp Pulse Resp BP Pulse Ox 97.6 F 82 16 119/82 94 01/14/18 13:31 01/14/18 13:31 01/14/18 13:31 01/14/18 13:31 01/14/18 13:31 - Lungs Lungs: Clear Ascult./Percussion - Airway Airway: Non-obstructed - Cardiovascular Regular Rate - Mental Status Mental Status: Alert & Oriented, Answers Appropriately - Pain Pain Scale: 7 (Noted to be tolerable per patient) Pain Scale used: Numeric (1 - 10) - Nausea Vomiting Nausea Vomiting: Not Present - Hydration Hydration: NPO, Has not voided - Discharge PostOp Status: Transfer Patient to floor
--- NOTE | 2018-01-14 14:15 | Physician Discharge Referral ---
<CapriLeah perez Javid - Last Filed: 01/14/18 14:14> Home Health/Hosp Referral Info Transfer to: Home Health Attending Provider: Provider in Charge Post Discharge: PCP - Diagnosis (1) Arthritis of right hip Priority: Primary Status: Chronic (2) Status post total hip replacement, right Priority: Primary Status: Acute (3) Congenital dysplasia of hip Priority: Primary Status: Chronic (4) Obesity (BMI 35.0-39.9 without comorbidity) Priority: Secondary Status: Chronic - Respiratory Orders None Smoking Cessation: Smoking cessation has been advised. For more information, call the [place] Tobacco Quit Line at 5-809-XTSV-NOW. - Diet/Nutrition Diet/Nutrition Orders: Regular - Activity Activity Orders: Up ad amina, Ambulate, Walker - Services Needed Following services are medically necessary services: Nursing, Home Health Aide, Physical Therapy, Occupational Therapy Home Care Orders: Rehab orders for total hip: Total Hip replacement Precautions Apply cold therapy 3-6x/day for 20 minutes at a time. Encourage ambulation throughout the day and incentive spirometer 10x/hour. Elevate affected extremity as tolerated. Brace: Wear hip abduction pillow when laying/sleeping Treatments: Opsite placed. Keep dressing intact until first follow up appointment. If > 50% saturated, notify office, remove dressing and place appropriate dressing back in place. Leave Zipline intact. Opsite dressing is water resistant, not water- proof. OK to shower, but do not get dressing wet. - Transfer Medications Home Medications: Aspirin Enteric Coated [Aspirin EC] 325 mg PO BID #20 tablet. 01/13/18 [Rx] OxyCODONE Immed Rel [Roxicodone 5 MG] 5 mg PO Q6HR PRN 7 Days #28 tablet [Rx] Meloxicam 15 mg PO DAILY 01/14/18 [History] Allergies/Adverse Reactions: 3 Allergy/AdvReac Type Severity Reaction Status Date / Time No Known Allergies Allergy Verified 01/14/18 10:25 Certification: Further, I certify that my clinical findings support that this patient is homebound (i.e. absences from home require considerable and taxing effort and are for medical reasons or sikh services or infrequently or short duration when for other reasons) because: Homebound Reason: Post-surgery restriction and or conditions limit ability to leave home Attestation: My signature below is to certify that this patient is under my care and that I, or nurse practitioner, or a physician's pathologist assistant working with me, has a face-to -face encounter with this patient. <Adebayo Friedman - Last Filed: 01/15/18 06:58> - Diagnosis (1) Status post total hip replacement, left Status: Chronic (2) Congenital dysplasia of hip Status: Chronic (3) Obesity (BMI 35.0-39.9 without comorbidity) Status: Chronic (4) Arthritis of right hip Status: Chronic (5) Status post total hip replacement, right Status: Acute - Respiratory Orders Smoking Cessation: Smoking cessation has been advised. For more information, call the [place] Tobacco Quit Line at 9-724-NPPO-NOW. Certification: Further, I certify that my clinical findings support that this patient is homebound (i.e. absences from home require considerable and taxing effort and are for medical reasons or sikh services or infrequently or short duration when for other reasons) because: Attestation: My signature below is to certify that this patient is under my care and that I, or nurse practitioner, or a physician's pathologist assistant working with me, has a face-to -face encounter with this patient.
[2018-01-14] MEDS ORDERED: Temazepam 15 MG CAPSULE PO PRN (14:22)
[2018-01-14] MEDS ORDERED: Ondansetron 4 MG/2 ML VIAL IVP PRN (14:22)
[2018-01-14] MEDS ORDERED: MOM Conc 10 ML UD.LIQ PO PRN (14:22)
[2018-01-14] MEDS ORDERED: traMADol 50 MG TABLET PO PRN (14:22)
[2018-01-14] MEDS ORDERED: Sennosides 8.6 MG TABLET PO PRN (14:22)
--- NOTE | 2018-01-14 17:08 | Electrocardiograph Report ---
[facility] Test Date: 2018-01-14 Pat Name: Ector Nascimento Department: 101 Room: [facility] Gender: M Alteration Specialist: LEIDA : [id number] Requested By: Adebayo Friedman Order Number: [id number] Reading MD: Marcelo Epps Measurements Intervals [place] Rate: 84 P: -2 VA: 125 QRS: -6 QRSD: 97 T: 47 QT: 378 QTc: 419 Interpretive Statements SINUS RHYTHM Electronically Signed On 01-14-2018 17:06:31 EDT by Marcelo Epps
[2018-01-14] MEDS: Ascorbic Acid 500 MG TABLET PO SCH (17:52)
[2018-01-14] MEDS: *HR* Enoxaparin 30 MG/0.3 ML SYRINGE SQ SCH (17:52)
[2018-01-14] MEDS: *HR* OxyCODONE/APAP 5/325 TABLET PO PRN ×2 (17:57→21:52)
[2018-01-14] MEDS ORDERED: *HR* Enoxaparin 30 MG/0.3 ML SYRINGE SQ SCH (18:00)
[2018-01-15 02:09] LABS: Hematocrit 37.7 % (37.5-50.1); Hemoglobin 12.7 g/dL (12.9-16.9)
[2018-01-15 02:33] LABS: BUN/Creatinine Ratio 17 (6-26); Blood Urea Nitrogen 12 mg/dL (6-20); Calcium 9.1 mg/dL (8.6-10.3); Carbon Dioxide 24 mEq/L (23-29); Chloride 105 mEq/L (98-107); Glucose 140 mg/dL (70-105); Osmolality,Calculated 284 (280-300); Potassium 4.3 mEq/L (3.5-5.1); Sodium 136 mEq/L (136-145); eGFR For African Americans > 60 (> 60); eGFR For Non-African Americans > 60 (> 60)
[2018-01-15] MEDS: *HR* OxyCODONE/APAP 5/325 TABLET PO PRN ×2 (02:56→07:31)
--- NOTE | 2018-01-15 06:58 | Orthopedics Progress Note ---
Date of Encounter: 01/15/18 Time of Encounter: 06:58 - Assessment and Plan (1) Status post total hip replacement, left Current Visit: No Status: Chronic (2) Congenital dysplasia of hip Current Visit: No Status: Chronic (3) Obesity (BMI 35.0-39.9 without comorbidity) Current Visit: No Status: Chronic (4) Arthritis of right hip Current Visit: No Status: Chronic (5) Status post total hip replacement, right Current Visit: No Status: Acute Subjective Interval history: Patient was seen this morning doing well without complaints. Afebrile vital signs stable. Operative extremity: Neurovascularly intact Dressing clean dry and intact Calves nontender Assessment and plan: Continue with postoperative care Hematocrit 37 Objective Vital signs: Vital Signs Temp Pulse Resp BP Pulse Ox 01/15/18 06:26 98.2 F 85 17 157/96 97 01/15/18 03:15 98.1 F 63 16 116/70 99 01/14/18 23:12 98.4 F 85 16 167/91 93 01/14/18 18:17 98.2 F 108 16 156/100 96 01/14/18 17:29 98.5 F 94 16 130/79 94 01/14/18 17:15 123/75 01/14/18 17:00 107/72 01/14/18 16:55 98/67 01/14/18 16:14 98.4 F 88 18 151/93 94 01/14/18 15:06 98.5 F 82 18 147/92 93 01/14/18 14:42 98.4 F 94 18 153/96 94 01/14/18 14:10 98.0 F 79 15 132/90 94 01/14/18 13:51 97.9 F 78 16 114/67 96 01/14/18 13:41 79 16 128/81 95 01/14/18 13:31 97.6 F 82 16 119/82 94 01/14/18 13:21 86 16 123/83 94 01/14/18 13:11 82 16 139/80 94 01/14/18 13:01 97.7 F 92 16 137/84 93 01/14/18 10:36 98.2 F 18 18 155/99 98 01/14/18 10:33 98.2 F 89 18 155/99 98 Intake and Output 01/14/18 01/14/18 01/15/18 15:59 23:59 07:59 Intake Total 20 / 20 400 / 400 Output Total 200 / 200 900 / 900 400 / 400 Balance -180 / -180 -500 / -500 -400 / -400 Intake: IV Fluids 20 / 20 100 / 100 Ancef Syringe 2,000 MG/20 ML 2, 20 / 20 000 mg In 20 ml @ 200 mls/hr IVPB PREOP ONE Rx#:[id number] Ancef 2,000 MG In 0.9 % Sodium 100 / 100 Chloride 100 ML @ 200 mls/hr IVPB Q8H [facility] Rx#:[id number] Oral 300 / 300 Output: Urine 900 / 900 400 / 400 Estimated Blood Loss 200 / 200 Other: Weight 104.326 kg - Labs CBC & BMP: 01/15/18 01:09 01/15/18 01:09 Labs: Abnormal lab results Hgb 12.7 g/dL (12.9-16.9) L 01/15/18 01:09 Glucose 140 mg/dL (70-105) H 01/15/18 01:09 - VTE Documentation of Mechanical Device: Venous foot pump, device Consult Discharge Plan - Plan Referrals: Corina Posada, RATE CLERK [Primary Care Provider] -
[2018-01-15] MEDS ORDERED: Multivit/Ca/Min/Fe/FA 1 TAB TABLET PO SCH (09:00)
[2018-01-15] MEDS: Ascorbic Acid 500 MG TABLET PO SCH ×2 (09:05→16:32)
[2018-01-15] MEDS: *HR* OxyCODONE Immed Rel 5 MG TABLET PO PRN ×2 (12:30→16:32)
[2018-01-15 16:13] VITALS: BP 153/66
[2018-01-15] MEDS: *HR* Enoxaparin 30 MG/0.3 ML SYRINGE SQ SCH (16:32)
--- NOTE | 2018-01-15 21:57 | Event Note ---
Date of Encounter: 01/15/18 Time of Encounter: 21:56 PCR - POD#1 thr Patient seen at bedside. Patient was seen this morning doing well, without complaints. Afebrile, vital signs stable. Labs reviewed. H/H - stable, asymptomatic Pain control: adequate Participating in PT. All questions and concerns addressed. Educated on use of incentive spirometer. Encouraged ambulation and proper hydration. Patient educated on post-operative restrictions and post-operative care. Assessment and plan: Continue with postoperative care Discharge plan: Home, discharge today.
== END 2018-01-15 18:54 | disposition home health service (06) | DRG 470 ==
LOC: SAMDAY 10:05 → 3NENU 14:57
PROVIDERS: ADMIT Orthopaedic Surgery; ATTEND Orthopaedic Surgery